=== PATIENT | female | born 1995 | race Caucasian/White ===

== ENCOUNTER 2021-05-06 03:01 | Inpatient (IN) | payer OTHER, MEDICAID ==
[2021-05-06] MEDS ORDERED: Ondansetron 4 MG/2 ML SDV IVPUSH PRN (04:04)
[2021-05-06] MEDS ORDERED: Calcium Carbonate 500 MG Tab.Chew PO PRN (04:04)
[2021-05-06] MEDS ORDERED: Nalbuphine 10 MG/1 ML Vial IVPUSH PRN (04:04)
[2021-05-06] MEDS ORDERED: Sodium Chloride 0.9% 10 ML Syringe FLUSH PRN (04:04)
[2021-05-06] MEDS ORDERED: Acetaminophen 325 MG Tab PO PRN (04:04)
[2021-05-06] MEDS ORDERED: Oxytocin/Lactated Ringers 10 UNIT/1,000 ML BAG IV SCH ×2 (04:15)
[2021-05-06] MEDS: Lactated Ringers 1,000 ML IV SCH ×3 (06:22→08:02)
--- NOTE | 2021-05-06 06:30 | PCM.LDHP ---
L&D History of Present Illness - General Date of Service: 05/06/21 Admit Problem/Dx: Patient Status Order with Admit Dx/Problem 05/06/21 04:04 Patient Status [ADT] Routine Admission Diagnosis/Problem Admission Diagnosis/Problem 05/06/21 06:21 Larry is a 25-year-old 2 para 1-0-0-1 female admitted on the a.m. of 05/06/2021 at 39-2/7 weeks gestational age with an ROSIBEL of 05/10/2021 in active la bor with a cervical dilation of 4 cm and spontaneous rupture membranes with resultant clear amniotic fluid. Source of Information: Patient History Limitations: Reports: No Limitations - History of Present Illness Introduction:: Larry is a 25-year-old 2 para 1-0-0-1 female admitted on the a.m. of 05/06/2021 at 39-2/7 weeks gestational age with an ROSIBEL of 05/10/2021 in active labor with a cervical dilation of 4 cm and spontaneous rupture membranes with resultant clear amniotic fluid. SROM occurred at approximately 0130 hrs. this morning. She has started fuentes since that time and has not gotten much rest. She continues to leak a small amount of clear fluid. heart tones are reassuring. Contractions are occurring every 3 to 4 minutes and are moderate in intensity. 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 Patient had menarche at approximately age 15. Relatively certain last menstrual period started 08/03/2020 given an ROSIBEL of 05/10/2021. This is supported by 2 ultrasounds done at 8 weeks and 2 days and 33-5/7 weeks. Patient has no history of STIs or abnormal Pap smears. Prev ious obstetric history includes the followin. Female born 05/18/2016 at 39-0/7 weeks gestational age6 [facility]'s name is Miryam. course: Larry is a patient of Dr. Rex Moore has been transferred care from Dr. Nam Owens/[facility] in [place] after Dr. Stahl moved away and was no longer seeing patients. She was seen on a fairly regular basis throughout the . Risk factors for the include distance from hospital, history of smoking 1 pack/day, patient failed her 1 hour GTT and never did a 3-hour GTT. Irregular and episodic blood glucose checks were reported to be normal by patient. Patient's weight gain has been within normal limits. Her vital signs been stable throughout the course. activity has been good. She is group B strep negative. She is Rh- and d id receive RhoGam at 28 weeks gestational age. She suffers from gastroesophageal reflux during third trimester of . Patient has had Tdap on 02/16/2021. Varicella immunization 1998. Hepatitis B immunization 1997. Meningococcal immunization in 2009. Laboratory testing in : Blood is a negative with a negative antibody screen. First laboratory testing showed a hemoglobin of 12.9 g/dL and platelets of 258,000. Pap smear was negative. Her rubella titer showed equivocal levels of immunity. RPR is nonreactive. Hepatitis B surface antigen and HIV assays were both negative. Chlamydia and gonorrhea were both negative. Second trimester diabetic screen test was 152. Her hemoglobin is 11.0. Group B strep screen was negative. Allergies: None Medications: 1. Cimetidine 200 mg p.o. twice daily before meals for GERD. vitamins 1 daily 3. Valacyclovir 500 mg twice daily. Past medical history: 1. x1 Past surgical history: Unremarkable Family history: No anesthesia, bleeding, blood clotting problems in the family. Social history: Patient is single. Lives in [place], [place]. Has some college education. Significant other is Ainsley Camarena. She smokes 1 pack/day. No drugs or alcohol use otherwise. Review of systems: In general patient has no complaints except leakage of fluids and contractions. Skin: Negative Lungs: No infectious symptoms or shortness of breath Cardiovascular: No chest pain or exercise intolerance Breasts: No lumps, changes in size, pain, dimpling, discharge or axillary or sup raclavicular concerns. GI: Negative : Negative Musculoskeletal: Negative Neurological: Negative In general the patient is well-developed, well-nourished, pleasant female of stated age in no acute distress. Skin is warm dry without lesions. HEENT, neck and back within normal limits. Lungs are clear with good breath sounds in all lung laurent. Cardiovascular exam shows regular and rhythm without murmurs. Abdomen is fundal height of 38 cm on last evaluation clinic on 04/27/2021 Genital per digital exam was 4 cm, 80% effaced, soft, -3 station, anterior, SROM with clear fluid Extremities and neurological exam are grossly within normal limits. - Related Data Allergies/Adverse Reactions: Allergies Allergy/AdvReac Type Severity Reaction Status Date / Time No Known Allergies Allergy Verified 05/06/21 04:06 Home Medications: Home Meds Cimetidine 200 mg PO BID 04/29/21 [History] Vits #93/Iron Fum/FA [ Formula Tablet] 1 tab PO DAILY 04/29/21 [History] valACYclovir HCl [Valtrex] 1 tab PO BID 04/29/21 [History] Past Medical History Gastrointestinal History: Reports: GERD FLEET DIRECTOR History: Reports: Other OB/BYN History: HSV (+) Psychiatric History: Reports: Addiction, Anxiety, Depression, Suicide Attempt Other Psychiatric History: Pt has adolescent history of drug abuse and suicide attempt, pt stated this was about 8 years ago. - Infectious Disease History Infectious Disease History: Reports: Herpes Social & Family History - Tobacco Use Tobacco Use Status *Q: Current Every Day Tobacco User Years of Tobacco use: 9 Packs/Tins Daily: 1 Used Tobacco, but Quit: No Second Hand Smoke Exposure: Yes - Caffeine Use Caffeine Use: Reports: None - Recreational Drug Use Recreational Drug Use: Yes Drug Use in Last 12 Months: No H&P Review of Systems - Review of Systems: Review Of Systems: See Below L&D Exam - Exam Exam: See Below - Vital Signs Vital Signs: Last Vital Signs Temp 36.7 C 05/06/21 04:04 Pulse 97 05/06/21 04:04 Resp 14 05/06/21 04:04 BP 123/75 05/06/21 04:04 Pulse Ox 97 05/06/21 04:04 Weight: 72.892 kg - Patient Data Lab Results Last 24 hrs: Laboratory Results - last 24 hr 05/06/21 05/06/21 Range/Units 03:40 04:04 WBC 11.42 H (3.98-10.04) K/mm3 RBC 3.61 L (3.98-5.22) M/mm3 Hgb 9.7 L (11.2-15.7) gm/dl Hct 30.2 L (34.1-44.9) % MCV 83.7 (79.4-94.8) fl MCH 26.9 (25.6-32.2) pg MCHC 32.1 L (32.2-35.5) g/dl RDW Std Deviation 42.2 (36.4-46.3) fL Plt Count 204 (182-369) K/mm3 MPV 11.3 (9.4-12.3) fl Neut % (Auto) 73.0 H (34.0-71.1) % Lymph % (Auto) 18.8 L (19.3-51.7) % [place] % (Auto) 7.4 (4.7-12.5) % Eos % (Auto) 0.4 L (0.7-5.8) Baso % (Auto) 0.2 (0.1-1.2) % Neut # (Auto) 8.33 H (1.56-6.13) K/mm3 Lymph # (Auto) 2.15 (1.18-3.74) K/mm3 [place] # (Auto) 0.85 H (0.24-0.36) K/mm3 Eos # (Auto) 0.05 (0.04-0.36) K/mm3 Baso # (Auto) 0.02 (0.01-0.08) K/mm3 SARS-CoV-2 RNA (BRANDON) Negative (NEGATIVE) Result Diagrams: 05/06/21 04:04 - Problem List (1) 39 weeks gestation of SNOMED Code(s): 91588700 ICD Code: Z3A.39 - 39 WEEKS GESTATION OF Status: Acute Current Visit: Yes (2) Smoker SNOMED Code(s): 40380952 ICD Code: F17.200 - NICOTINE DEPENDENCE, UNSPECIFIED, UNCOMPLICATED Status: Acute Current Visit: Yes (3) SROM (spontaneous rupture of membranes) SNOMED Code(s): 154817716 ICD Code: [id number] - Status: Acute Current Visit: Yes Problem List Initiated/Reviewed/Updated: Yes Orders Last 24hrs: Active Orders 24 hr Category Date Time Status Patient Status [ADT] Routine ADT 05/06/21 04:04 Active Activity as Tolerated [RC] PFP Care 05/06/21 04:04 Active Communication Order [RC] ASDIRECTED Care 05/06/21 04:04 Active Heart Tones [RC] ASDIRECTED Care 05/06/21 04:04 Active Notify Provider [RC] PFP Care 05/06/21 04:04 Active Notify Provider [RC] PRN Care 05/06/21 04:04 Active Peripheral IV Care [RC] . DIRECTED Care 05/06/21 04:04 Active Pump Management, Intrathecal [RC] ASDIRECTED Care 05/06/21 07:00 Active Urinary Catheter Assessment [RC] ASDIRECTED Care 05/06/21 04:04 Active Vital Signs [RC] PER UNIT ROUTINE Care 05/06/21 04:04 Active Regular Diet [DIET] Diet 05/06/21 Breakfast Active HEPATITIS C ANTIBODY [CHEM] Stat Lab 05/06/21 04:04 Ordered RAPID PLASMA REAGIN,RPR [CHEM] Routine Lab 05/06/21 04:04 Ordered Acetaminophen [TylenoL] Med 05/06/21 04:04 Active 650 mg PO Q4H PRN Calcium Carbonate [Tums] Med 05/06/21 04:04 Active 1,000 mg PO Q2H PRN Lactated Ringers [Ringers, Lactated] 1,000 ml Med 05/06/21 04:15 Active IV ASDIRECTED Nalbuphine [Nubain] Med 05/06/21 04:04 Active 10 mg IVPUSH Q2H PRN Ondansetron [Zofran] Med 05/06/21 04:04 Active 4 mg IVPUSH Q4H PRN Oxytocin/Lactated Ringers [Pitocin in LR 10 Units/1,000 Med 05/06/21 04:15 Active ML] 10 unit in 1,000 ml IV .CONTINUOUS Oxytocin/Lactated Ringers [Pitocin in LR 10 Units/1,000 Med 05/06/21 04:15 Active ML] 10 unit in 1,000 ml IV TITRATE Sodium Chloride 0.9% [Saline Flush] Med 05/06/21 04:04 Active 10 ml FLUSH ASDIRECTED PRN Electronic Heart Tones Ext w TOCO [WOMSER] Oth 05/06/21 04:04 Ordered Routine Electronic Heart Tones Internal [WOMSER] Per Unit Oth 05/06/21 04:04 Ordered Routine Peripheral IV Insertion Adult [OM.PC] Routine Oth 05/06/21 04:04 Ordered Resuscitation Status Routine Resus Stat 05/06/21 04:04 Ordered Medication Orders Acetaminophen (Acetaminophen 325 Mg Tab) 650 mg PO Q4H PRN PRN Reason: Pain (Mild 1-3) and fever Calcium Carbonate/Glycine (Calcium Carbonate 500 Mg Tab.Chew) 1,000 mg PO Q2H PRN PRN Reason: Indigestion Oxytocin/Lactated Ringer's (Pitocin In Lr 10 Units/1,000 Ml) 10 unit in 1,000 mls @ 12 mls/hr IV TITRATE RONALDO; Protocol Oxytocin/Lactated Ringer's (Pitocin In Lr 10 Units/1,000 Ml) 10 unit in 1,000 mls @ 100 mls/hr IV .CONTINUOUS RONALDO; Protocol Lactated Ringer's (Ringers, Lactated) 1,000 mls @ 100 mls/hr IV ASDIRECTED RONALDO Nalbuphine HCl (Nalbuphine 10 Mg/1 Ml Vial) 10 mg IVPUSH Q2H PRN PRN Reason: Pain Ondansetron HCl (Ondansetron 4 Mg/2 Ml Sdv) 4 mg IVPUSH Q4H PRN PRN Reason: Nausea/Vomiting Sodium Chloride (Sodium Chloride 0.9% 10 Ml Syringe) 10 ml FLUSH ASDIRECTED PRN PRN Reason: Keep Vein Open Assessment/Plan Comment:: 1. Blood is a negative with a negative antibody screen. First laboratory testing showed a hemoglobin of 12.9 g/dL and platelets of 258,000. Pap smear was negative. Her rubella titer showed equivocal levels of immunity. RPR is nonreactive. Hepatitis B surface antigen and HIV assays were both negative. Chlamydia and gonorrhea were both negative. Second trimester diabetic screen test was 152. Her hemoglobin is 11.0. Group B strep screen was negative. 2. Group B strep negative 3. Patient desires epidural 4. Risk factors include smoking history, distance from the hospital, Rh- status, failed 1 hour GTT with less than optimal follow-up and evaluation 5. Plans to breast-feed Plan: 1. Anticipate 2. Epidural 3. Support breast-feeding plan 4. Nicotine patch during labor if necessary 5. Routine admission labs per protocol.
[2021-05-06] MEDS ORDERED: Bupivacaine/fentaNYL/NS 100 ML Bag EPIDUR PRN (07:14)
[2021-05-06] MEDS ORDERED: fentaNYL 100 MCG/2 ML SDV EPIDUR PRN (07:14)
[2021-05-06] MEDS ORDERED: ePHEDrine 50 MG/ML SDV IVPUSH PRN (07:14)
[2021-05-06] MEDS ORDERED: diphenhydrAMINE 50 MG/ML SDV IVPUSH PRN (07:14)
--- NOTE | 2021-05-06 07:53 | PCM.PREANE ---
Preanesthetic Assessment - Procedure Proposed Procedure: divine - Anesthesia/Transfusion/Family Hx Anesthesia History: Prior Anesthesia Without Reaction Family History of Anesthesia Reaction: No Transfusion History: No Prior Transfusion(s) - Review of Systems General: No Symptoms Pulmonary: No Symptoms Cardiovascular: No Symptoms Gastrointestinal: No Symptoms Neurological: No Symptoms Other: Reports: Anxiety - Physical Assessment Vital Signs: Last Vital Signs Temp 98.1 F 05/06/21 04:04 Pulse 97 05/06/21 04:04 Resp 14 05/06/21 04:04 BP 123/75 05/06/21 04:04 Pulse Ox 97 05/06/21 04:04 Height: 5 ft Weight: 72.892 kg ASA Class: 2 Mental Status: Alert & Oriented x3 Airway Class: Mallampati = 2 Dentition: Reports: Normal Dentition (tongue piercing) Thyro-Mental Finger Breadths: 3 Mouth Opening Finger Breadths: 3 ROM/Head Extension: Full Lungs: Clear to Auscultation, Normal Respiratory Effort Cardiovascular: Regular Rate, Regular Rhythm - Lab Values: Laboratory Last Values WBC 11.42 K/mm3 (3.98-10.04) H 05/06/21 04:04 RBC 3.61 M/mm3 (3.98-5.22) L 05/06/21 04:04 Hgb 9.7 gm/dl (11.2-15.7) L 05/06/21 04:04 Hct 30.2 % (34.1-44.9) L 05/06/21 04:04 MCV 83.7 fl (79.4-94.8) 05/06/21 04:04 MCH 26.9 pg (25.6-32.2) 05/06/21 04:04 MCHC 32.1 g/dl (32.2-35.5) L 05/06/21 04:04 RDW Std Deviation 42.2 fL (36.4-46.3) 05/06/21 04:04 Plt Count 204 K/mm3 (182-369) 05/06/21 04:04 MPV 11.3 fl (9.4-12.3) 05/06/21 04:04 Neut % (Auto) 73.0 % (34.0-71.1) H 05/06/21 04:04 Lymph % (Auto) 18.8 % (19.3-51.7) L 05/06/21 04:04 [place] % (Auto) 7.4 % (4.7-12.5) 05/06/21 04:04 Eos % (Auto) 0.4 (0.7-5.8) L 05/06/21 04:04 Baso % (Auto) 0.2 % (0.1-1.2) 05/06/21 04:04 Neut # (Auto) 8.33 K/mm3 (1.56-6.13) H 05/06/21 04:04 Lymph # (Auto) 2.15 K/mm3 (1.18-3.74) 05/06/21 04:04 [place] # (Auto) 0.85 K/mm3 (0.24-0.36) H 05/06/21 04:04 Eos # (Auto) 0.05 K/mm3 (0.04-0.36) 05/06/21 04:04 Baso # (Auto) 0.02 K/mm3 (0.01-0.08) 05/06/21 04:04 SARS-CoV-2 RNA (BRANDON) Negative (NEGATIVE) 05/06/21 03:40 - Allergies Allergies/Adverse Reactions: Allergies Allergy/AdvReac Type Severity Reaction Status Date / Time No Known Allergies Allergy Verified 05/06/21 04:06 - Blood Blood Available: No - Acknowledgements Anesthesia Type Planned: Epidural Pt an Appropriate Candidate for the Planned Anesthesia: Yes Alternatives and Risks of Anesthesia Discussed w Pt/Guardian: Yes Pt/Guardian Understands and Agrees with Anesthesia Plan: Yes PreAnesthesia Questionnaire Cardiovascular History: Reports: None Respiratory History: Reports: Other (See Below) (smoker) Gastrointestinal History: Reports: GERD SLURRY BLENDER History: Reports: : 2 (39 weeks) Para: 1 Other OB/BYN History: HSV (+) Musculoskeletal History: Reports: None Psychiatric History: Reports: Addiction, Anxiety, Depression, Suicide Attempt Other Psychiatric History: Pt has adolescent history of drug abuse and suicide attempt, pt stated this was about 8 years ago. Endocrine/Metabolic History: Reports: Obesity/BMI 30+ Oncologic (Cancer) History: Reports: None - Infectious Disease History Infectious Disease History: Reports: Herpes - SUBSTANCE USE Tobacco Use Status *Q: Current Every Day Tobacco User Tobacco Use Within Last Twelve Months: Cigarettes Second Hand Smoke Exposure: Yes Days Per Week of Alcohol Use: 0 Recreational Drug Use History: No - HOME MEDS Home Medications: Home Meds Cimetidine 200 mg PO BID 04/29/21 [History] Vits #93/Iron Fum/FA [ Formula Tablet] 1 tab PO DAILY 04/29/21 [History] valACYclovir HCl [Valtrex] 1 tab PO BID 04/29/21 [History] - CURRENT (IN HOUSE) MEDS Current Meds: Current Medications Acetaminophen (Acetaminophen 325 Mg Tab) 650 mg PO Q4H PRN PRN Reason: Pain (Mild 1-3) and fever Calcium Carbonate/Glycine (Calcium Carbonate 500 Mg Tab.Chew) 1,000 mg PO Q2H PRN PRN Reason: Indigestion Diphenhydramine HCl (Diphenhydramine 50 Mg/Ml Sdv) 25 mg IVPUSH Q6H PRN PRN Reason: pruritis Ephedrine Sulfate (Ephedrine 50 Mg/Ml Sdv) 5 mg IVPUSH ASDIRECTED PRN PRN Reason: Hypotension Fentanyl (Fentanyl 100 Mcg/2 Ml Sdv) 100 mcg EPIDUR Q3H PRN PRN Reason: Pain Last Admin: 05/06/21 07:31 Dose: 100 mcg Documented by: Fentanyl/Bupivacaine HCl (Bupivacaine/Fentanyl/Ns 100 Ml Bag) 100 ml EPIDUR ASDIRECTED PRN PRN Reason: Pain Last Admin: 05/06/21 07:32 Dose: 100 ml Documented by: Oxytocin/Lactated Ringer's (Pitocin In Lr 10 Units/1,000 Ml) 10 unit in 1,000 mls @ 12 mls/hr IV TITRATE RONALDO; Protocol Oxytocin/Lactated Ringer's (Pitocin In Lr 10 Units/1,000 Ml) 10 unit in 1,000 mls @ 100 mls/hr IV .CONTINUOUS RONALDO; Protocol Lactated Ringer's (Ringers, Lactated) 1,000 mls @ 100 mls/hr IV ASDIRECTED RONALDO Last Admin: 05/06/21 07:19 Dose: 100 mls/hr Documented by: Nalbuphine HCl (Nalbuphine 10 Mg/1 Ml Vial) 10 mg IVPUSH Q2H PRN PRN Reason: Pain Ondansetron HCl (Ondansetron 4 Mg/2 Ml Sdv) 4 mg IVPUSH Q4H PRN PRN Reason: Nausea/Vomiting Sodium Chloride (Sodium Chloride 0.9% 10 Ml Syringe) 10 ml FLUSH ASDIRECTED PRN PRN Reason: Keep Vein Open
[2021-05-06] MEDS ORDERED: Nicotine 21 MG/24 Hr Patch TRDERM SCH (11:45)
[2021-05-06] MEDS ORDERED: Witch Hazel Medicated Pads 40/Jar TOP PRN (13:19)
[2021-05-06] MEDS ORDERED: Benzocaine/Menthol 20%-0.5% Spray 56 GM Canister TOP PRN (13:20)
[2021-05-06] MEDS: Ibuprofen 600 MG Tab PO PRN (15:13)
[2021-05-06] MEDS ORDERED: Bupivacaine 0.25% 10 ML SDV ONE (19:00)
[2021-05-06] MEDS ORDERED: Docusate Sodium 100 MG Cap PO SCH (21:00)
[2021-05-07] MEDS: Ibuprofen 600 MG Tab PO PRN ×2 (03:24→11:27)
--- NOTE | 2021-05-07 08:27 | PCM48HPAN ---
Post Anesthesia Note - EVALUATION WITHIN 48HRS OF ANESTHETIC Vital Signs in Normal Range: Yes Patient Participated in Evaluation: Yes Respiratory Function Stable: Yes Airway Patent: Yes Cardiovascular Function Stable: Yes Hydration Status Stable: Yes Pain Control Satisfactory: Yes Nausea and Vomiting Control Satisfactory: Yes Mental Status Recovered: Yes Vital Signs: Last Vital Signs Temp 36.8 C 05/07/21 03:22 Pulse 54 L 05/07/21 03:22 Resp 16 05/07/21 03:22 BP 121/76 05/07/21 03:22 Pulse Ox 93 L 05/07/21 03:22
--- NOTE | 2021-05-17 06:18 | PCM.SN.2 ---
- Free Text/Narrative Note: Delivery note: Stage I: Larry is a 25-year-old 2 now para 2-0-0-2 female admitted on the a.m. of 05/06/2021 at 39-2/7 weeks gestational age with an ROSIBEL of 05/10/2021 in active labor with a cervical dilation of 4 cm and spontaneous rupture membranes with resultant clear amniotic fluid. heart tones were generally reassuring throughout the labor. She underwent epidural for labor analgesia with good results. Progressed to complete cervical dilation. Stage II: The patient spontaneously delivered with gentle downward traction and then upward traction to deliver the anterior and posterior shoulder respectively. The baby was placed on mom's abdomen. Nose and mouth were bulb suctioned and baby was dried with warm blanket. Pitocin was increased to 500 cc an hour with solution of 10 units/L. This to facilitate increase in uterine tone and decrease likelihood of bleeding. Umbilical cord cord was allowed to pulsate for 3 minutes and then was clamped x2 and cut. The umbilical cord had 3 vessels. Cord blood was obtained. Stage III: Placenta delivered in a Ulrich presentation, appeared intact and complete and was discarded per patient desire. EBL was approximately 200 cc. Condition: Good
--- NOTE | 2021-06-01 08:55 | PCM.DCSUM1 ---
Discharge Summary - Hospital Course Diagnosis: Stroke: No - Discharge Data Discharge Date: 06/08/21 Discharge Disposition: Home, Self-Care 01 Condition: Good - Referral to Home Health Primary Care Physician: Rex Moise MD - Patient Summary/Data Hospital Course: Stage I: Larry is a 25-year-old 2 now para 2-0-0-2 female admitted on the a.m. of 05/06/2021 at 39-2/7 weeks gestational age with an ROSIBEL of 05/10/2021 in active labor with a cervical dilation of 4 cm and spontaneous rupture membranes with resultant clear amniotic fluid. heart tones were generally reassuring throughout the labor. She underwent epidural for labor analgesia with good results. Progressed to complete cervical dilation. Stage II: The patient spontaneously delivered with gentle downward traction and then upward traction to deliver the anterior and posterior shoulder respectively. The baby was placed on mom's abdomen. Nose and mouth were bulb suctioned and baby was dried with warm blanket. Pitocin was increased to 500 cc an hour with solution of 10 units/L. This to facilitate increase in uterine tone and decrease likelihood of bleeding. Umbilical cord cord was allowed to pulsate for 3 minutes and then was clamped x2 and cut. The umbilical cord had 3 vessels. Cord blood was obtained. Stage III: Placenta delivered in a Ulrich presentation, appeared intact and complete and was discarded per patient desire. EBL was approximately 200 cc. Condition: Good - Patient Instructions Diet: Regular Diet as Tolerated Activity: As Tolerated Driving: May Drive Today Showering/Bathing: May Shower Notify Provider of: Fever, Increased Pain, Swelling and Redness, Drainage, Nausea and/or Vomiting - Discharge Plan *PRESCRIPTION DRUG MONITORING PROGRAM REVIEWED*: No *COPY OF PRESCRIPTION DRUG MONITORING REPORT IN PATIENT ROBERT: No Home Medications: Home Meds Cimetidine 200 mg PO BID 04/29/21 [History] Vits #93/Iron Fum/FA [ Formula Tablet] 1 tab PO DAILY 04/29/21 [History] valACYclovir HCl [Valtrex] 1 tab PO BID 04/29/21 [History] Patient Handouts: Steps to Quit Smoking Referrals: Daniel Farris MD [Physician] - - Discharge Summary/Plan Comment DC Time >30 min.: No Total # of Minutes for Discharge Time: 20 - General Info Date of Service: 06/08/21 - Patient Data Vitals - Most Recent: Last Vital Signs Temp 36.8 C 05/07/21 03:22 Pulse 54 L 05/07/21 03:22 Resp 16 05/07/21 03:22 BP 121/76 05/07/21 03:22 Pulse Ox 93 L 05/07/21 03:22 Weight - Most Recent: 72.892 kg Med Orders - Current: Current Medications Discontinued Medications Acetaminophen (Acetaminophen 325 Mg Tab) 650 mg PO Q4H PRN PRN Reason: Pain (Mild 1-3) and fever Benzocaine/Menthol (Benzocaine/Menthol 20%-0.5% [place] 56 Gm Canister) 56 gm TOP ASDIRECTED PRN PRN Reason: Perineal Comfort Measure Last Admin: 05/06/21 15:14 Dose: 1 applic Documented by: Bupivacaine HCl (Bupivacaine 0.25% 10 Ml Sdv) 10 ml .ROUTE .STK-MED ONE Stop: 05/06/21 19:01 Calcium Carbonate/Glycine (Calcium Carbonate 500 Mg Tab.Chew) 1,000 mg PO Q2H PRN PRN Reason: Indigestion Diphenhydramine HCl (Diphenhydramine 50 Mg/Ml Sdv) 25 mg IVPUSH Q6H PRN PRN Reason: pruritis Docusate Sodium (Docusate Sodium 100 Mg Cap) 100 mg PO BID RONALDO Last Admin: 05/07/21 05:24 Dose: Not Given Documented by: Ephedrine Sulfate (Ephedrine 50 Mg/Ml Sdv) 5 mg IVPUSH ASDIRECTED PRN PRN Reason: Hypotension Fentanyl (Fentanyl 100 Mcg/2 Ml Sdv) 100 mcg EPIDUR Q3H PRN PRN Reason: Pain Last Admin: 05/06/21 07:31 Dose: 100 mcg Documented by: Fentanyl/Bupivacaine HCl (Bupivacaine/Fentanyl/Ns 100 Ml Bag) 100 ml EPIDUR ASDIRECTED PRN PRN Reason: Pain Last Admin: 05/06/21 07:32 Dose: 100 ml Documented by: Oxytocin/Lactated Ringer's (Pitocin In Lr 10 Units/1,000 Ml) 10 unit in 1,000 mls @ 12 mls/hr IV TITRATE RONALDO; Protocol Last Titration: 05/06/21 10:22 Dose: 4 munits/min, 24 mls/hr Documented by: Oxytocin/Lactated Ringer's (Pitocin In Lr 10 Units/1,000 Ml) 10 unit in 1,000 mls @ 100 mls/hr IV .CONTINUOUS RONALDO; Protocol Lactated Ringer's (Ringers, Lactated) 1,000 mls @ 100 mls/hr IV ASDIRECTED RONALDO Last Admin: 05/06/21 08:02 Dose: 100 mls/hr Documented by: Ibuprofen (Ibuprofen 600 Mg Tab) 600 mg PO Q6H PRN PRN Reason: Pain Last Admin: 05/07/21 11:27 Dose: 600 mg Documented by: Miscellaneous Information (Remove Nicotine Patch) 1 ea TRDERM DAILY RONALDO Nalbuphine HCl (Nalbuphine 10 Mg/1 Ml Vial) 10 mg IVPUSH Q2H PRN PRN Reason: Pain Nicotine (Nicotine 21 Mg/24 Hr Patch) 21 mg TRDERM DAILY RONALDO Last Admin: 05/06/21 15:42 Dose: 21 mg Documented by: Ondansetron HCl (Ondansetron 4 Mg/2 Ml Sdv) 4 mg IVPUSH Q4H PRN PRN Reason: Nausea/Vomiting Sodium Chloride (Sodium Chloride 0.9% 10 Ml Syringe) 10 ml FLUSH ASDIRECTED PRN PRN Reason: Keep Vein Open Witch Antonina (Witch Antonina Medicated Pads 40/Jar) 1 pad TOP ASDIRECTED PRN PRN Reason: Perineal Comfort Measure Last Admin: 05/06/21 15:15 Dose: 1 applic Documented by:
== END 2021-05-07 13:50 | disposition home or self-care (01) | DRG 807 ==
LOC: JD.OBCHECK 03:01 → JD.OB 03:05 → JD.OBCHECK 04:03 → JD.OB 04:04 → OBSVTOIN 12:27 → JD.OB 12:28
PROVIDERS: ADMIT Obstetrics & Gynecology; ATTEND Obstetrics & Gynecology
PROC: 10E0XZZ Delivery of Products of Conception, External Approach (ICD-10-PCS; principal; 2021-05-06)
DX: O99.62 Diseases of the digestive system complicating childbirth (principal); Z37.0 Single live birth; K21.9 Gastro-esophageal reflux disease without esophagitis; O99.334 Smoking (tobacco) complicating childbirth; F17.210 Nicotine dependence, cigarettes, uncomplicated; O99.214 Obesity complicating childbirth; O99.344 Other mental disorders complicating childbirth; F41.9 Anxiety disorder, unspecified; F32.9 Major depressive disorder, single episode, unspecified; Z20.822 Contact with and (suspected) exposure to COVID-19; Z3A.39 39 weeks gestation of pregnancy
CPT/HCPCS: 01967; 36415; 51702; 59025; 59409; 80306; 85025; 86592; 86803; A9270-GY; J2590; J3010; J3490; J7120; U0002

== ENCOUNTER 2022-09-07 06:50 | Inpatient (IN) | payer MEDICAID ==
[~2022-09-07 06:50] MED LIST: Lidocaine 1% 10 ML MDV ONE
[2022-09-07] MEDS ORDERED: Lidocaine 1% 50 ML MDV INJECT SCH (08:03)
[2022-09-07] MEDS ORDERED: Sodium Chloride 0.9% 10 ML Syringe FLUSH PRN (08:03)
[2022-09-07] MEDS ORDERED: Ondansetron 4 MG/2 ML SDV IVPUSH PRN (08:03)
[2022-09-07] MEDS ORDERED: Nalbuphine HCl 10 MG/ 1ML Amp IVPUSH PRN (08:03)
[2022-09-07] MEDS ORDERED: Oxytocin/Lactated Ringers 10 UNIT/1,000 ML BAG IV SCH ×2 (08:15)
[2022-09-07] MEDS: Lactated Ringers 1,000 ML IV SCH ×2 (08:45→14:00)
[2022-09-07] MEDS ORDERED: Sodium Chloride 0.9% 10 ML Syringe FLUSH SCH (09:00)
[2022-09-07] MEDS ORDERED: Nicotine 14 MG/24 Hr Patch TRDERM SCH (09:00)
[2022-09-07] MEDS ORDERED: Bupivacaine/fentaNYL/NS 100 ML Bag EPIDUR PRN (09:19)
[2022-09-07] MEDS ORDERED: ePHEDrine 50 MG/ML SDV IVPUSH PRN (09:19)
[2022-09-07] MEDS ORDERED: diphenhydrAMINE 50 MG/ML SDV IVPUSH PRN (09:19)
[2022-09-07] MEDS ORDERED: fentaNYL 100 MCG/2 ML SDV EPIDUR PRN (09:19)
[2022-09-07] MEDS ORDERED: Acetaminophen 325 MG Tab PO PRN (17:04)
[2022-09-07] MEDS ORDERED: Witch Hazel Medicated Pads 40/Jar TOP PRN (17:04)
[2022-09-07] MEDS ORDERED: Benzocaine/Menthol 20%-0.5% Spray 78 GM Cannister TOP PRN (17:04)
[2022-09-07] MEDS ORDERED: Ibuprofen 600 MG Tab PO PRN (17:04)
== END 2022-09-08 10:30 | disposition home or self-care (01) | DRG 806 ==
LOC: JD.OB 06:50 → OBSVTOIN 15:29 → JD.OB 15:30
PROVIDERS: ADMIT Obstetrics & Gynecology; ATTEND Obstetrics & Gynecology
PROC: 10E0XZZ Delivery of Products of Conception, External Approach (ICD-10-PCS; principal; 2022-09-07)
PROC: 10907ZC Drainage of Amniotic Fluid, Therapeutic from Products of Conception, Via Natural or Artificial Opening (ICD-10-PCS; 2022-09-07)
PROC: 3E033VJ Introduction of Other Hormone into Peripheral Vein, Percutaneous Approach (ICD-10-PCS; 2022-09-07)
PROC: 0HQ9XZZ Repair Perineum Skin, External Approach (ICD-10-PCS; 2022-09-07)
PROC: 3E0R3BZ Introduction of Anesthetic Agent into Spinal Canal, Percutaneous Approach (ICD-10-PCS; 2022-09-07)
PROC: 00HU33Z Insertion of Infusion Device into Spinal Canal, Percutaneous Approach (ICD-10-PCS; 2022-09-07)
PROC: 3E0334Z Introduction of Serum, Toxoid and Vaccine into Peripheral Vein, Percutaneous Approach (ICD-10-PCS; 2022-09-07)
DX: O99.334 Smoking (tobacco) complicating childbirth (principal); O98.32 Other infections with a predominantly sexual mode of transmission complicating childbirth; Z37.0 Single live birth; O99.214 Obesity complicating childbirth; O99.344 Other mental disorders complicating childbirth; F41.9 Anxiety disorder, unspecified; F32.A Depression, unspecified; O99.62 Diseases of the digestive system complicating childbirth; K21.9 Gastro-esophageal reflux disease without esophagitis; A60.09 Herpesviral infection of other urogenital tract; O70.0 First degree perineal laceration during delivery; F17.210 Nicotine dependence, cigarettes, uncomplicated; Z3A.39 39 weeks gestation of pregnancy; O26.893 Other specified pregnancy related conditions, third trimester; Z67.11 Type A blood, Rh negative
CPT/HCPCS: 01967; 36415; 36430; 51701; 59025; 59409; 85025; 85461; 86592; 86850; 86870; 86900; 86901; A9270-GY; J2590; J2790; J7120